=== PATIENT | male | born 1995 | race Caucasian/White ===

== ENCOUNTER 2017-07-22 17:46 | Emergency (ER) | payer MEDICAID, SELFPAY ==
[2017-07-22 17:47] VITALS: BP 148/95; PULSE 92; RESP 16; TEMP 36.6; O2SAT 98; BMI 27.3
[2017-07-22 18:16] VITALS: O2SAT 98
--- NOTE | 2017-07-22 18:35 | RAD_ITS ---
STUDY: X-RAY CHEST REASON FOR EXAM: Male, 22 years old. Cough TECHNIQUE: Frontal and lateral views of the chest. COMPARISON: None. FINDINGS: The lungs are clear and expanded. There is no demonstrated pleural abnormality. Normal size heart. Normal mediastinum and jennifer. Normal visualized pulmonary arteries. Normal visualized aortic arch and descending thoracic aorta. Normal visualized thoracic spine. Normal visualized ribs, clavicles, and shoulders. There is no demonstrated abnormality of the visualized soft tissue structures of the upper abdomen. RAD/Chest PA and Lateral IMPRESSION: No acute cardiopulmonary disease. Electronically Signed: Matt Hayward DO at 20:00 EDT , Service support ,
--- NOTE | 2017-07-22 18:35 | EKG12_ITS ---
Test Reason : COUGH Blood Pressure : / mmHG Vent. Rate : 080 BPM Atrial Rate : 080 BPM P-R Int : 120 ms QRS Dur : 092 ms QT Int : 364 ms P-R-T Axes : 061 080 013 degrees QTc Int : 419 ms Normal sinus rhythm Nonspecific T wave abnormality Confirmed by NIRALI PIEDRA, LING ([id number]), city editor JOSÉ TURNER ([id number] on 07/25/2017 1:30:00 PM Referred By: BARBARA Confirmed By:LING CAMPOVERDE MD
[2017-07-22 18:47] VITALS: BP 91/51; PULSE 64; RESP 18; O2SAT 99
--- NOTE | 2017-07-22 18:50 | ED.RN ---
hyperventilation , pale diaphoretic with iv start/blood draw. hyperventilation and anxiety. pt got n/t and contracturing to marita upper extermities. encouraged breathing techniques and breathing in to bag. pt sx resolved. over several minutes.
[2017-07-22 18:57] LABS: Absolute Lymphocyte Count 2.16 X10^3/ul (0.83-4.51); Absolute Neutrophil Count 7.7 X10^3/uL (2.0-7.7); Basophil# 0.03 X10^3/uL; Basophil% 0.3 % (0-1); Eosinophils% 0.9 % (0-5); Hematocrit 45.4 % (40-54); Hemoglobin 16.5 g/dl (13.0-16.5); Lymphocyte # 2.16 X10^3/ul (4.0); Lymphocyte % 19.9 % (19-41); Mean Corp Hgb Conc 36.3 g/gl (32-36); Mean Corpuscular Hgb 31.1 pg (27.0-32.0); Mean Corpuscular Volume 85.5 fL (80-94); Mean Platelet Vol. 9.2 fl (6.2-12.0); Monocyte# 0.81 X10^3/uL; Monocyte% 7.5 % (0-10); Neutrophil # 7.71 X10^3/uL (2.7-7.7); Neutrophil % 71.1 % (47-70); Platelet Count 300 K/mm3 (150-450); RBC Distribution Width CV 11.5 % (11.6-14.6); RBC Distribution Width SD 36.2 fl (35.1-43.9); Red Blood Count 5.31 M/mm3 (4.6-6.2); White Blood Count 10.8 K/mm3 (4.4-11.0)
[2017-07-22 19:03] LABS: POSITIVE COUNT NO; POSITIVE DIFFERENTIAL NO; POSITIVE MORPHOLOGY NO
[2017-07-22 19:15] LABS: Anion Gap 6 (5-15); BUN 17 mg/dL (7-18); BUN/Creat Ratio 18.1 RATIO (10-20); Calcium,Total 9.5 mg/dL (8.5-10.1); Chloride 102 mmol/L (98-107); Creatinine, Serum 0.94 mg/dL (0.70-1.30); EST Glomerular Filtration Rate 108 mL/min (>60); Est Glom Filt Rate - Afr Amer 130 mL/min (>60); Estimated Creatinine Clearance 124.31 ml/min; Glucose 83 mg/dL (74-106); Sodium Level 139 mmol/L (136-145)
[2017-07-22] MEDS: 0.9% Normal Saline 1,000 ML 999 ML IV (19:15)
--- NOTE | 2017-07-22 19:53 | NURSING ---
PATIENT IS LOOKING A LOT BETTER SINCE I ARRIVED WHEN HE WAS RECOVERING FROM A HYPERVENTILATION EPISODE.
--- NOTE | 2017-07-22 21:28 | ED.VISSUMM ---
- ER Visit Summary Date of Service: 07/22/17 Chief Complaint: Cough History of Present Illness: The patient is a 22 M 2 week history of cough. No fever, chills, sweats. No sore throat. No chest pain shortness of breath. No wheezing. States mild headache and nasal congestion. No falls or head injuries. No nausea or vomiting. Tolerate oral fluids. Denies tobacco history. Occasional alcohol. Patient on medicines for anxiety along with ADD. 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 Physical Examination: General: Alert and oriented ?3, no acute distress HEENT: Normocephalic, atraumatic. Moist mucosa membranes Neck: supple, nontender. Cardiovascular: Regular rate and rhythm, no murmurs Respiratory: Normal breath sounds, symmetric, no distress Abdomen: Soft, nontender, nondistended Extremities: Nontender, no edema, pulses intact ?4 Neuro: no focal neurological deficits. Test Results: EKG sinus rate of [address] or T-wave changes. CBC, BMP troponin negative. Chest x-ray negative. Emergency Department Course and Treatment: Initial discussion with patient. Vital signs all stable. Discussed viral syndrome. Initial plan with patient was a treat for bronchitis. However I discussed with patient even on antibiotics he may not get better. Cough would be the lasting to go. There is a risk of diarrhea. He initially agreed. Later prior to discharge, received information, stating patient called his father who is a physician, was requesting labs and testing to be performed. Therefore labs, EKG, chest x-ray are obtained. However after IV stick, patient started hyperventilating. He had diffuse contractions due to hyperventilation syndrome. He was calm down and allowed the breathing bag. Symptoms resolved. Discussed with patient all treatment has risk. This was requested by his father. I offered to talk to his father to discuss what happened. I discussed with a negative workup, no indication for antibiotic treatment at this time. He will monitor symptoms. He will follow-up as an outpatient. Treatment Plan: [] Disposition: Discharge Impression: 1. Acute upper respiratory illness 2. Hyperventilation syndrome This note was generated with [employer] software. It may contain incorrect words, spelling, and punctuation that were not noted in review of the chart prior to signing ED Disposition - Plan for ED Patient: Disposition: Home or Assisted Living Chief Complaint: Cough Diagnosis: Viral upper respiratory illness, Hyperventilation syndrome Instructions: ED Upper Resp Infec No Abx Tx, ED Hyperventilation Syndrome Referrals: [facility] Doctor,Out of [Primary Care Provider] - 3-5 Days
[2017-07-22 21:29] VITALS: BP 132/84; PULSE 85; PULSE 92; RESP 14; RESP 18; O2SAT 96; O2SAT 97
== END 2017-07-22 22:03 | disposition home or self-care (01) ==
PROVIDERS: Emergency Provider Emergency Medicine
DX: J06.9 Acute upper respiratory infection, unspecified (principal); J40 Bronchitis, not specified as acute or chronic; F45.8 Other somatoform disorders; F41.9 Anxiety disorder, unspecified; F98.8 Other specified behavioral and emotional disorders with onset usually occurring in childhood and adolescence; Z79.899 Other long term (current) drug therapy
CPT/HCPCS: 71046; 80048; 84484; 85025; 93005; 96360; 96361; 99283; J7030; A4216